=== PATIENT | female | born 1970 | race African-American/Black ===

== ENCOUNTER 2020-12-08 14:16 | Emergency (ER) | payer SELFPAY ==
[2020-12-08 14:43] LABS: #Basophils 0.1 thou/uL (0.0-0.2); #Eosinphils 0.3 thou/uL (0.0-0.7); #Lymphocytes 2.8 thou/uL (1.20-3.40); #Monocytes 0.4 thou/uL (0.11-0.59); #Neutrophils 3.4 thou/uL (1.40-6.50); %Basophils 1.1 % (0.0-1.0); %Lymphocytes 40.3 % (21.0-51.0); %Monocytes 5.6 % (0.0-10.0); Hemoglobin 10.8 g/dL (12.0-16.0); Mean Corpuscular HGB CONC 31.4 g/dL (32.0-36.0); Mean Corpuscular Hemoglobin 26.1 pg (27.0-31.0); Mean Corpuscular Volume 83.1 fL (78.0-98.0); Mean Platelet Volume 9.5 fL (7.4-10.4); Platelet Count 227 thou/uL (130-400); RBC Distribution Width 14.3 % (11.5-14.5); Red Blood Cell (RBC) Count 4.13 mill/uL (4.20-5.40)
[2020-12-08 15:02] LABS: ALT (SGPT) 10 U/L (8-55); AST (SGOT) 12 U/L (5-34); Albumin 3.8 g/dL (3.5-5.0); Alkaline Phosphatase 91 U/L (40-110); Anion Gap 12 mmol/L (10-20); BUN (Urea Nitrogen) 17 mg/dL (7.0-18.7); Bilirubin, Total 0.2 mg/dL (0.2-1.2); Calc. Creatinine Clearance 0 mL/min (70-130); Calcium 8.3 mg/dL (7.8-10.44); Carbon Dioxide 26 mmol/L (22-29); Chloride 109 mmol/L (98-107); Globulin 2.6 g/dL (2.4-3.5); Glucose 78 mg/dL (70-105); Potassium 3.9 mmol/L (3.5-5.1); Protein, Total 6.4 g/dL (6.0-8.3); Sodium 143 mmol/L (136-145)
== END 2020-12-08 17:41 | disposition short-term general hospital (02) ==
LOC: ERS 14:16
DX: G62.9 Polyneuropathy, unspecified (principal)
CPT/HCPCS: 36415; 71046; 80053; 84484; 85025; 85379; 93005

== ENCOUNTER 2022-02-13 06:52 | Emergency (ER) | payer OTHER, SELFPAY | END 2022-02-13 07:45 | disposition home or self-care (01) | LOC: ERS 06:52 | DX: H81.399 Other peripheral vertigo, unspecified ear (principal) | CPT/HCPCS: 99283 ==

== ENCOUNTER 2022-03-04 06:27 | Emergency (ER) | payer SELFPAY | END 2022-03-04 07:08 | disposition home or self-care (01) | LOC: ERS 06:27 | DX: U07.1 COVID-19 (principal); J40 Bronchitis, not specified as acute or chronic; Z79.899 Other long term (current) drug therapy | CPT/HCPCS: 99284; U0003; U0005 ==

== ENCOUNTER 2022-06-10 18:38 | Emergency (ER) | payer OTHER, SELFPAY ==
[2022-06-10 22:59] LABS: SARS-CoV-2 NAA Rapid Test Not Detected (NotDetected)
[2022-06-10] MEDS ORDERED: Bicillin LA 1.2 MILLION UNITS/2 ML SYRINGE ONE (23:36)
== END 2022-06-10 23:55 | disposition home or self-care (01) ==
LOC: ERS 18:38
DX: J02.0 Streptococcal pharyngitis (principal); Z20.822 Contact with and (suspected) exposure to COVID-19
CPT/HCPCS: 71045; 87430; 93005; 96372; J0561

== ENCOUNTER 2023-08-14 17:02 | Emergency (ER) | payer BC, SELFPAY ==
[2023-08-14 18:09] LABS: SARS-CoV-2 NAA Rapid Test Not Detected (NotDetected)
== END 2023-08-14 19:35 | disposition home or self-care (01) ==
LOC: ERS 17:02
DX: J40 Bronchitis, not specified as acute or chronic (principal); Z20.822 Contact with and (suspected) exposure to COVID-19
CPT/HCPCS: 99284